=== PATIENT | male | born 1970 | race Two or more races ===

== ENCOUNTER 2020-02-21 13:49 | Inpatient (IN) | payer OTHER ==
[2020-02-21 16:35] VITALS: BMI 25.8
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
[2020-02-21] MEDS ORDERED: NICOTINE POLACRILEX 2 MG GUM BUC PRN (17:27)
[2020-02-21] MEDS ORDERED: MAGNESIUM CITRATE 300 ML BOTTLE PO PRN (17:27)
[2020-02-21] MEDS ORDERED: MAGNESIUM HYDROX 2400MG/30ML ORAL SUSPENSION 30 ML CUP PO PRN (17:27)
[2020-02-21] MEDS ORDERED: ONDANSETRON *ODT* 4 MG TABLET SL ONE (17:27)
[2020-02-21] MEDS ORDERED: BISMUTH SUBSALICYLATE 524 MG/30 ML UD PO PRN (17:27)
[2020-02-21] MEDS ORDERED: MENTHOL/PHENOL 1 EACH UD MM PRN (17:27)
[2020-02-21] MEDS ORDERED: ACETAMINOPHEN 325 MG TABLET (FP) PO PRN ×2 (17:27)
[2020-02-21] MEDS ORDERED: IBUPROFEN 400 MG TABLET (FP) PO PRN (17:27)
[2020-02-21] MEDS ORDERED: diazePAM 5 MG TABLET PO ONE (17:27)
[2020-02-21] MEDS ORDERED: MAG HYDROX/AL HYDROX/SIMETH 30 ML UNIT-DOSE CUP PO PRN (17:27)
[2020-02-21] MEDS ORDERED: TUBERCULIN PPD 5 TU/0.1ML VIAL ID ONE ×2 (19:48→21:07)
[2020-02-21] MEDS: diazePAM 5 MG TABLET PO SCH (22:14)
[2020-02-21] MEDS: MELATONIN 5 MG TABLETS PO SCH (22:14)
[2020-02-21] MEDS: METHOCARBAMOL 500 MG TABLET PO PRN (22:14)
[2020-02-21] MEDS: THIAMINE HCL 100 MG TABLET (FP) PO SCH (22:14)
[2020-02-22] MEDS ORDERED: METHADONE HCL 10 MG TABLET ONE (04:11)
[2020-02-22] MEDS ORDERED: METHADONE HCL 40 MG DISPERSABLE TABLET ONE (04:11)
[2020-02-22] MEDS ORDERED: METHADONE HCL 10 MG TABLET PO ONE (06:00)
[2020-02-22] MEDS ORDERED: METHADONE 80 MG, METHADONE 30 MG PO ONE (06:00)
[2020-02-22] MEDS: diazePAM 5 MG TABLET PO SCH ×3 (07:21→22:33)
[2020-02-22] MEDS: PRENATAL VITAMINS W/ FOLIC ACID TABLET (FP) PO SCH (10:35)
[2020-02-22] MEDS: NICOTINE 7 MG/24 HOURS TOPICAL PATCH TD SCH (10:36)
[2020-02-22] MEDS: diazePAM 5 MG TABLET PO PRN (10:37)
[2020-02-22 11:42] LABS: HEMATOCRIT 39.4 % (35.4-49); MCH 28.3 pg (25.7-33.7); MCHC 32.9 g/dl (32.0-35.9); MEAN CELL VOLUME 85.9 fl (80-96); MEAN PLT VOLUME 8.9 fl (7.5-11.1); PLATELET COUNT 162 K/MM3 (134-434); RBC 4.59 M/mm3 (4.00-5.60); WHITE BLOOD COUNT 5.3 K/mm3 (4.0-10.0)
[2020-02-22 11:55] LABS: ALBUMIN 3.1 g/dl (3.4-5.0); BILIRUBIN,TOTAL 0.2 mg/dL (0.2-1); BLOOD UREA NITROGEN 13.7 mg/dL (7-18); CALCIUM 8.9 mg/dL (8.5-10.1); CREATININE 0.8 mg/dL (0.55-1.3); POTASSIUM 4.2 mmol/L (3.5-5.1); TOT PROT 6.3 g/dl (6.4-8.2)
--- NOTE | 2020-02-22 13:50 | PN ---
S CIWA - CIWA Score Nausea/Vomitin-Mild Nausea/No Vomiting Muscle Tremors: 3 Anxiety: 2 Agitation: 1-Slight > Activity Paroxysmal Sweats: 1-Minimal Palms Moist Orientation: 0-Oriented Tacttile Disturbances: 1-Very Mild Itch/Numbness Auditory Disturbances: 0-None Visual Disturbances: 2-Mild Sensitivity Headache: 1-Very Mild CIWA-Ar Total Score: 12 [facility] Progress Note (SOAP) Subjective: 49 years old male admitted on 02/21/20 for benzo withdrawal sx management treating with valium detox regiment received methadone 110 mg po today feeling ok resting in bed comfortably Objective: 02/22/20 13:49 Vital Signs - 24 hr 02/21/20 02/21/20 02/21/20 16:27 18:15 19:50 Temperature 97.4 F L 97.4 F L 97.8 F Pulse Rate 79 79 67 Respiratory 16 16 18 Rate Blood Pressure 111/74 111/74 114/73 O2 Sat by Pulse 98 Oximetry (%) 02/22/20 02/22/20 02/22/20 07:14 09:05 11:15 Temperature 97.8 F 98.2 F Pulse Rate 61 87 Respiratory 16 18 Rate Blood Pressure 108/64 117/73 O2 Sat by Pulse 96 96 Oximetry (%) Laboratory Tests 02/22/20 02/22/20 02/22/20 07:30 07:30 07:30 WBC 5.3 RBC 4.59 Hgb 13.0 Hct 39.4 MCV 85.9 MCH 28.3 MCHC 32.9 RDW 14.0 Plt Count 162 D MPV 8.9 Sodium 142 Potassium 4.2 Chloride 106 Carbon Dioxide 29 Anion Gap 6 L BUN 13.7 Creatinine 0.8 Est GFR (CKD-EPI)AfAm 123.29 Est GFR (CKD-EPI)NonAf 106.38 Random Glucose 107 H Calcium 8.9 Total Bilirubin 0.2 AST 12 L ALT 18 Alkaline Phosphatase 75 Total Protein 6.3 L Albumin 3.1 L Syphilis Serology Non-reactive Assessment: 02/22/20 13:49 benzo withdrawal Plan: valium regiment
[2020-02-22] MEDS: MELATONIN 5 MG TABLETS PO SCH (22:32)
[2020-02-22] MEDS: METHOCARBAMOL 500 MG TABLET PO PRN (22:33)
[2020-02-22] MEDS: THIAMINE HCL 100 MG TABLET (FP) PO SCH (22:33)
[2020-02-23] MEDS: diazePAM 5 MG TABLET PO SCH ×2 (06:13→17:29)
[2020-02-23] MEDS ORDERED: METHADONE HCL 10 MG TABLET PO ONE (09:43)
[2020-02-23] MEDS ORDERED: METHADONE 80 MG, METHADONE 20 MG, METHADONE 5 MG PO ONE (10:30)
[2020-02-23] MEDS: PRENATAL VITAMINS W/ FOLIC ACID TABLET (FP) PO SCH (10:32)
[2020-02-23] MEDS: NICOTINE 7 MG/24 HOURS TOPICAL PATCH TD SCH (10:32)
[2020-02-23] MEDS ORDERED: METHADONE HCL 10 MG TABLET ONE (11:00)
[2020-02-23] MEDS ORDERED: METHADONE HCL 5 MG TABLET ONE (11:00)
[2020-02-23] MEDS ORDERED: METHADONE HCL 40 MG DISPERSABLE TABLET ONE (11:01)
--- NOTE | 2020-02-23 12:49 | PN ---
S CIWA - CIWA Score Nausea/Vomitin-No Nausea/No Vomiting Muscle Tremors: 4-Moderate,w/Arms Extend Anxiety: 4-Mod. Anxious/Guarded Agitation: 4-Moderately Restless Paroxysmal Sweats: 1-Minimal Palms Moist Orientation: 0-Oriented Tacttile Disturbances: 0-None Auditory Disturbances: 0-None Visual Disturbances: 0-None Headache: 0-None Present CIWA-Ar Total Score: 13 [facility] Progress Note (SOAP) Subjective: Anxiety sweats irritability sl tremors On methadone 105 mg po daily at [facility]. Objective: 02/23/20 12:27 Vital Signs 02/23/20 02/23/20 05:51 09:36 Temperature 98.2 F 98.0 F Pulse Rate 87 87 Respiratory 16 18 Rate Blood Pressure 117/73 120/66 O2 Sat by Pulse 98 98 Oximetry (%) Laboratory Tests 02/22/20 02/22/20 02/22/20 07:30 07:30 07:30 WBC 5.3 RBC 4.59 Hgb 13.0 Hct 39.4 MCV 85.9 MCH 28.3 MCHC 32.9 RDW 14.0 Plt Count 162 D MPV 8.9 Sodium 142 Potassium 4.2 Chloride 106 Carbon Dioxide 29 Anion Gap 6 L BUN 13.7 Creatinine 0.8 Est GFR (CKD-EPI)AfAm 123.29 Est GFR (CKD-EPI)NonAf 106.38 Random Glucose 107 H Calcium 8.9 Total Bilirubin 0.2 AST 12 L ALT 18 Alkaline Phosphatase 75 Total Protein 6.3 L Albumin 3.1 L Syphilis Serology Non-reactive labs noted covid-19 pending Alert o x 3 nad oob ambulating with steady gait 02/23/20 14:12 Assessment: 02/23/20 14:11 withdrawal sx Plan: cont detox
[2020-02-23 17:27] LABS: PH,URINE 7.5 (5.0-8.0); URINE APPEARANCE CLEAR; URINE BILIRUBIN NEGATIVE (NEGATIVE); URINE COLOR YELLOW; URINE GLUCOSE (UA) NEGATIVE (NEGATIVE); URINE KETONE NEGATIVE (NEGATIVE); URINE LEUK ESTERASE NEGATIVE (NEGATIVE); URINE NITRITE NEGATIVE (NEGATIVE); URINE PROTEIN NEGATIVE (NEGATIVE); URINE UROBILINOGEN 0.2 mg/dL (0.2-1.0)
[2020-02-23] MEDS: THIAMINE HCL 100 MG TABLET (FP) PO SCH (21:06)
[2020-02-23] MEDS: MELATONIN 5 MG TABLETS PO SCH (21:06)
[2020-02-23] MEDS: diazePAM 5 MG TABLET PO PRN (21:07)
[2020-02-24] MEDS ORDERED: METHADONE 80 MG, METHADONE 20 MG, METHADONE 5 MG PO SCH (06:00)
[2020-02-24] MEDS ORDERED: METHADONE HCL 10 MG TABLET PO SCH (06:00)
[2020-02-24] MEDS ORDERED: diazePAM 5 MG TABLET PO ONE (06:00)
[2020-02-24] MEDS ORDERED: METHADONE HCL 10 MG TABLET ONE (06:29)
[2020-02-24] MEDS ORDERED: METHADONE HCL 5 MG TABLET ONE (06:29)
[2020-02-24] MEDS ORDERED: METHADONE HCL 40 MG DISPERSABLE TABLET ONE (06:30)
[2020-02-24 06:45] VITALS: BP 148/83; PULSE 71; TEMP 97.8
[2020-02-24] MEDS: PRENATAL VITAMINS W/ FOLIC ACID TABLET (FP) PO SCH (09:06)
[2020-02-24] MEDS: NICOTINE 7 MG/24 HOURS TOPICAL PATCH TD SCH (09:06)
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
== END 2020-02-24 10:33 | disposition home or self-care (01) | DRG 773 ==
LOC: YASAS 13:49 → Y5N DETOX 19:14
PROVIDERS: ADMIT Allergy & Immunology; ATTEND Allergy & Immunology
PROC: HZ2ZZZZ Detoxification Services for Substance Abuse Treatment (ICD-10-PCS; principal; 2020-02-21)
DX: F10.230 Alcohol dependence with withdrawal, uncomplicated (principal); F11.20 Opioid dependence, uncomplicated; F13.20 Sedative, hypnotic or anxiolytic dependence, uncomplicated; F17.210 Nicotine dependence, cigarettes, uncomplicated; Z91.013 Allergy to seafood
CPT/HCPCS: 36415; 80053; 81003; 85027; 86780; U0003

== ENCOUNTER 2021-10-05 12:39 | Inpatient (IN) | payer OTHER ==
[2021-10-05] MEDS ORDERED: MAG HYDROX/AL HYDROX/SIMETH 30 ML UNIT-DOSE CUP PO PRN (12:59)
[2021-10-05] MEDS ORDERED: BISMUTH SUBSALICYLATE 524 MG/30 ML PO PRN (12:59)
[2021-10-05] MEDS ORDERED: IBUPROFEN 400 MG TABLET (FP) PO PRN (12:59)
[2021-10-05] MEDS ORDERED: ONDANSETRON *ODT* 4 MG TABLET SL PRN (12:59)
[2021-10-05] MEDS ORDERED: MAGNESIUM CITRATE 300 ML BOTTLE PO PRN (12:59)
[2021-10-05] MEDS ORDERED: MAGNESIUM HYDROX 2400MG/30ML ORAL SUSPENSION 30 ML CUP PO PRN (12:59)
[2021-10-05] MEDS ORDERED: MENTHOL/PHENOL 1 EACH UD MM PRN (12:59)
[2021-10-05] MEDS ORDERED: chlordiazePOXIDE HCL 25 MG CAPSULE PO PRN (12:59)
[2021-10-05] MEDS ORDERED: NICOTINE 10 MG CARTRIDGE (INHALER) IH PRN (12:59)
[2021-10-05] MEDS ORDERED: ACETAMINOPHEN 325 MG TABLET (FP) PO PRN ×2 (12:59)
[2021-10-05 13:18] VITALS: BMI 23.1
[2021-10-05] MEDS: hydrOXYzine PAMOATE 25 MG CAPSULE (FP) PO SCH ×3 (15:39→22:21)
[2021-10-05] MEDS: NICOTINE 7 MG/24 HOURS TOPICAL PATCH TD SCH (15:40)
[2021-10-05] MEDS: PRENATAL VITAMINS W/ FOLIC ACID TABLET (FP) PO SCH (15:40)
[2021-10-05 17:03] LABS: HEMATOCRIT 40.8 % (35.4-49); HEMOGLOBIN 13.2 GM/dL (11.7-16.9); MCH 26.6 pg (25.7-33.7); MCHC 32.4 g/dl (32.0-35.9); MEAN PLT VOLUME 8.8 fl (7.5-11.1); PLATELET COUNT 205 10^3/uL (134-434); RBC 4.97 M/mm3 (4.00-5.60); RDW 14.7 % (11.9-15.9); WHITE BLOOD COUNT 6.6 K/mm3 (4.0-10.0)
[2021-10-05 17:15] LABS: ALBUMIN 3.4 g/dl (3.4-5.0); CALCIUM 8.8 mg/dL (8.5-10.1)
[2021-10-05 17:18] LABS: CREATININE 0.9 mg/dL (0.55-1.3)
[2021-10-05 17:20] LABS: TOT PROT 7.4 g/dl (6.4-8.2)
[2021-10-05 17:21] LABS: BILIRUBIN,TOTAL 0.1 mg/dL (0.2-1)
[2021-10-05] MEDS: chlordiazePOXIDE HCL 25 MG CAPSULE PO SCH ×2 (18:20→22:21)
[2021-10-05] MEDS: THIAMINE HCL 100 MG TABLET (FP) PO SCH (22:21)
[2021-10-05] MEDS: MELATONIN 5 MG TABLETS PO SCH (22:21)
[2021-10-06] MEDS: chlordiazePOXIDE HCL 25 MG CAPSULE PO SCH ×4 (05:17→22:12)
[2021-10-06] MEDS: hydrOXYzine PAMOATE 25 MG CAPSULE (FP) PO SCH ×5 (05:17→22:12)
[2021-10-06] MEDS ORDERED: methaDONE HCL 40 MG DISPERSABLE TABLET PO SCH (10:00)
[2021-10-06] MEDS: PRENATAL VITAMINS W/ FOLIC ACID TABLET (FP) PO SCH (10:16)
[2021-10-06] MEDS ORDERED: methaDONE HCL 10 MG TABLET ONE (10:36)
[2021-10-06] MEDS ORDERED: methaDONE HCL 40 MG DISPERSABLE TABLET ONE (10:37)
[2021-10-06] MEDS: NICOTINE 7 MG/24 HOURS TOPICAL PATCH TD SCH (10:51)
[2021-10-06] MEDS: MELATONIN 5 MG TABLETS PO SCH (22:11)
[2021-10-06] MEDS: THIAMINE HCL 100 MG TABLET (FP) PO SCH (22:12)
[2021-10-07] MEDS ORDERED: methaDONE HCL 40 MG DISPERSABLE TABLET ONE (04:36)
[2021-10-07] MEDS ORDERED: methaDONE HCL 10 MG TABLET ONE (04:36)
[2021-10-07] MEDS: hydrOXYzine PAMOATE 25 MG CAPSULE (FP) PO SCH ×5 (05:12→22:16)
[2021-10-07] MEDS: chlordiazePOXIDE HCL 25 MG CAPSULE PO SCH ×4 (05:12→22:15)
[2021-10-07] MEDS: PRENATAL VITAMINS W/ FOLIC ACID TABLET (FP) PO SCH (10:11)
[2021-10-07] MEDS: NICOTINE 7 MG/24 HOURS TOPICAL PATCH TD SCH (10:29)
[2021-10-07] MEDS: MELATONIN 5 MG TABLETS PO SCH (22:16)
[2021-10-07] MEDS: THIAMINE HCL 100 MG TABLET (FP) PO SCH (22:16)
[2021-10-08] MEDS ORDERED: chlordiazePOXIDE HCL 10 MG CAPSULE PO PRN
[2021-10-08] MEDS ORDERED: methaDONE HCL 10 MG TABLET ONE (04:26)
[2021-10-08] MEDS ORDERED: methaDONE HCL 40 MG DISPERSABLE TABLET ONE (04:26)
[2021-10-08] MEDS: chlordiazePOXIDE HCL 10 MG CAPSULE PO SCH ×4 (05:22→22:13)
[2021-10-08] MEDS: hydrOXYzine PAMOATE 25 MG CAPSULE (FP) PO SCH ×5 (05:23→22:13)
[2021-10-08] MEDS: NICOTINE 7 MG/24 HOURS TOPICAL PATCH TD SCH (10:19)
[2021-10-08] MEDS: PRENATAL VITAMINS W/ FOLIC ACID TABLET (FP) PO SCH (10:20)
[2021-10-08] MEDS: MELATONIN 5 MG TABLETS PO SCH (22:13)
[2021-10-08] MEDS: METHOCARBAMOL 500 MG TABLET PO PRN (22:13)
[2021-10-08] MEDS: THIAMINE HCL 100 MG TABLET (FP) PO SCH (22:13)
[2021-10-09] MEDS ORDERED: methaDONE HCL 40 MG DISPERSABLE TABLET ONE (04:17)
[2021-10-09] MEDS ORDERED: methaDONE HCL 10 MG TABLET ONE (04:17)
[2021-10-09] MEDS: chlordiazePOXIDE HCL 10 MG CAPSULE PO SCH ×2 (05:24→17:46)
[2021-10-09] MEDS: hydrOXYzine PAMOATE 25 MG CAPSULE (FP) PO SCH ×5 (05:24→22:33)
[2021-10-09] MEDS: NICOTINE 7 MG/24 HOURS TOPICAL PATCH TD SCH (10:17)
[2021-10-09] MEDS: PRENATAL VITAMINS W/ FOLIC ACID TABLET (FP) PO SCH (10:17)
[2021-10-09] MEDS: MELATONIN 5 MG TABLETS PO SCH (22:31)
[2021-10-09] MEDS: THIAMINE HCL 100 MG TABLET (FP) PO SCH (22:33)
[2021-10-09] MEDS: METHOCARBAMOL 500 MG TABLET PO PRN (22:33)
[2021-10-10] MEDS ORDERED: methaDONE HCL 10 MG TABLET ONE (04:14)
[2021-10-10] MEDS ORDERED: methaDONE HCL 40 MG DISPERSABLE TABLET ONE (04:15)
[2021-10-10] MEDS ORDERED: chlordiazePOXIDE HCL 10 MG CAPSULE PO ONE (05:00)
[2021-10-10] MEDS: hydrOXYzine PAMOATE 25 MG CAPSULE (FP) PO SCH (05:14)
[2021-10-10 09:03] VITALS: BP 113/71; PULSE 72; TEMP 97.3
== END 2021-10-10 09:53 | disposition other institution (70) | DRG 773 ==
LOC: YASAS 12:39 → Y3N 14:00
PROVIDERS: ADMIT Allergy & Immunology; ATTEND Allergy & Immunology
PROC: HZ2ZZZZ Detoxification Services for Substance Abuse Treatment (ICD-10-PCS; principal; 2021-10-05)
DX: F11.23 Opioid dependence with withdrawal (principal); F10.230 Alcohol dependence with withdrawal, uncomplicated; F13.20 Sedative, hypnotic or anxiolytic dependence, uncomplicated; F17.210 Nicotine dependence, cigarettes, uncomplicated; B18.2 Chronic viral hepatitis C; R63.4 Abnormal weight loss; Z68.23 Body mass index [BMI] 23.0-23.9, adult; Z98.890 Other specified postprocedural states; Z91.013 Allergy to seafood; Z56.0 Unemployment, unspecified; Z59.00 Homelessness unspecified
CPT/HCPCS: 36415; 80053; 85027; 86780; 93005; 93010; C9803; U0003; U0005

== ENCOUNTER 2022-03-18 12:12 | Inpatient (IN) | payer OTHER ==
[2022-03-18 14:47] VITALS: BMI 23.8
[2022-03-18] MEDS ORDERED: MAG HYDROX/AL HYDROX/SIMETH 30 ML UNIT-DOSE CUP PO PRN (16:13)
[2022-03-18] MEDS ORDERED: DICYCLOMINE HCL 10 MG CAPSULE PO PRN (16:13)
[2022-03-18] MEDS ORDERED: MAGNESIUM CITRATE 300 ML BOTTLE PO PRN (16:13)
[2022-03-18] MEDS ORDERED: ACETAMINOPHEN 325 MG TABLET (FP) PO PRN ×2 (16:13)
[2022-03-18] MEDS ORDERED: MAGNESIUM HYDROX 2400MG/30ML ORAL SUSPENSION 30 ML CUP PO PRN (16:13)
[2022-03-18] MEDS ORDERED: IBUPROFEN 600 MG TABLET (FP) PO PRN (16:13)
[2022-03-18] MEDS ORDERED: BISMUTH SUBSALICYLATE 524 MG/30 ML PO PRN (16:13)
[2022-03-18] MEDS ORDERED: IBUPROFEN 400 MG TABLET (FP) PO PRN (16:13)
[2022-03-18] MEDS ORDERED: NICOTINE POLACRILEX 2 MG GUM BUC PRN (16:13)
[2022-03-18] MEDS ORDERED: NALOXONE HCL 0.4 MG/ML VIAL IM PRN (16:13)
[2022-03-18] MEDS ORDERED: LOPERAMIDE HCL 2 MG CAPSULE PO PRN (16:13)
[2022-03-18] MEDS ORDERED: BENZOCAINE/MENTHOL (CHLORASEPTIC ) LOZENGE MM PRN (16:13)
[2022-03-18] MEDS: LORazepam 2 MG TABLET PO SCH ×2 (18:37→22:05)
[2022-03-18] MEDS: LORazepam 1 MG TABLET PO PRN (20:45)
[2022-03-18] MEDS: THIAMINE HCL 100 MG TABLET (FP) PO SCH (22:05)
[2022-03-18] MEDS: MELATONIN 5 MG TABLETS PO SCH (22:05)
[2022-03-19] MEDS: LORazepam 2 MG TABLET PO SCH ×4 (05:50→22:06)
[2022-03-19 09:07] LABS: HEMATOCRIT 40.8 % (35.4-49); HEMOGLOBIN 13.5 GM/dL (11.7-16.9); MCH 27.2 pg (25.7-33.7); MCHC 33.1 g/dl (32.0-35.9); MEAN CELL VOLUME 82.3 fl (80-96); MEAN PLT VOLUME 8.2 fl (7.5-11.1); PLATELET COUNT 228 10^3/uL (134-434); RBC 4.95 M/mm3 (4.00-5.60); RDW 14.3 % (11.9-15.9); WHITE BLOOD COUNT 5.5 K/mm3 (4.0-10.0)
[2022-03-19 09:11] LABS: ALBUMIN 3.2 g/dl (3.4-5.0); BLOOD UREA NITROGEN 10.5 mg/dL (7-18); CREATININE 0.9 mg/dL (0.55-1.3)
[2022-03-19 09:12] LABS: CALCIUM 8.9 mg/dL (8.5-10.1)
[2022-03-19 09:13] LABS: BILIRUBIN,TOTAL 0.2 mg/dL (0.2-1); TOT PROT 7.6 g/dl (6.4-8.2)
[2022-03-19] MEDS: NICOTINE 7 MG/24 HOURS TOPICAL PATCH TD SCH (10:16)
[2022-03-19] MEDS: METHOCARBAMOL 500 MG TABLET PO PRN (10:16)
[2022-03-19] MEDS: PRENATAL VITAMINS W/ FOLIC ACID TABLET (FP) PO SCH (10:16)
[2022-03-19] MEDS: hydrOXYzine PAMOATE 25 MG CAPSULE (FP) PO PRN ×2 (10:16→13:58)
[2022-03-19] MEDS ORDERED: methaDONE HCL 10 MG TABLET PO ONE (10:42)
[2022-03-19] MEDS: LORazepam 1 MG TABLET PO PRN (13:56)
[2022-03-19] MEDS: MELATONIN 5 MG TABLETS PO SCH (22:06)
[2022-03-19] MEDS: THIAMINE HCL 100 MG TABLET (FP) PO SCH (22:06)
[2022-03-20] MEDS: LORazepam 1 MG TABLET PO SCH ×4 (06:02→22:39)
[2022-03-20] MEDS: METHOCARBAMOL 500 MG TABLET PO PRN (06:03)
[2022-03-20] MEDS ORDERED: methaDONE HCL 10 MG TABLET PO SCH (08:45)
[2022-03-20] MEDS ORDERED: methaDONE HCL 10 MG TABLET ONE (09:25)
[2022-03-20] MEDS ORDERED: methaDONE HCL 40 MG DISPERSABLE TABLET ONE (09:26)
[2022-03-20] MEDS: PRENATAL VITAMINS W/ FOLIC ACID TABLET (FP) PO SCH (09:35)
[2022-03-20] MEDS: hydrOXYzine PAMOATE 25 MG CAPSULE (FP) PO PRN ×2 (09:35→19:09)
[2022-03-20] MEDS: NICOTINE 7 MG/24 HOURS TOPICAL PATCH TD SCH (09:36)
[2022-03-20] MEDS: LORazepam 1 MG TABLET PO PRN (19:09)
[2022-03-20] MEDS: MELATONIN 5 MG TABLETS PO SCH (22:39)
[2022-03-20] MEDS: THIAMINE HCL 100 MG TABLET (FP) PO SCH (22:39)
[2022-03-21] MEDS ORDERED: LORazepam 0.5 MG TABLET PO PRN
[2022-03-21] MEDS ORDERED: methaDONE HCL 10 MG TABLET ONE (04:26)
[2022-03-21] MEDS ORDERED: methaDONE HCL 40 MG DISPERSABLE TABLET ONE (04:27)
[2022-03-21] MEDS: METHOCARBAMOL 500 MG TABLET PO PRN ×3 (05:24→22:25)
[2022-03-21] MEDS: LORazepam 0.5 MG TABLET PO SCH ×4 (05:25→22:24)
[2022-03-21] MEDS: NICOTINE 7 MG/24 HOURS TOPICAL PATCH TD SCH (10:18)
[2022-03-21] MEDS: PRENATAL VITAMINS W/ FOLIC ACID TABLET (FP) PO SCH (10:18)
[2022-03-21] MEDS: hydrOXYzine PAMOATE 25 MG CAPSULE (FP) PO PRN ×2 (10:20→17:39)
[2022-03-21] MEDS: THIAMINE HCL 100 MG TABLET (FP) PO SCH (22:23)
[2022-03-21] MEDS: MELATONIN 5 MG TABLETS PO SCH (22:24)
[2022-03-22] MEDS ORDERED: methaDONE HCL 40 MG DISPERSABLE TABLET ONE (05:00)
[2022-03-22] MEDS ORDERED: LORazepam 0.5 MG TABLET PO ONE (05:00)
[2022-03-22] MEDS ORDERED: methaDONE HCL 10 MG TABLET ONE (05:00)
[2022-03-22 08:41] VITALS: RESP 18
[2022-03-22] MEDS: METHOCARBAMOL 500 MG TABLET PO PRN (10:09)
[2022-03-22] MEDS: PRENATAL VITAMINS W/ FOLIC ACID TABLET (FP) PO SCH (10:09)
[2022-03-22] MEDS: NICOTINE 7 MG/24 HOURS TOPICAL PATCH TD SCH (10:10)
[2022-03-22 13:10] VITALS: BP 108/65; PULSE 74; TEMP 97.3
== END 2022-03-22 13:10 | disposition other institution (70) | DRG 773 ==
LOC: YASAS 12:12 → Y3N 16:31
PROVIDERS: ADMIT Allergy & Immunology; ATTEND Surgery
PROC: HZ2ZZZZ Detoxification Services for Substance Abuse Treatment (ICD-10-PCS; principal; 2022-03-18)
DX: F10.230 Alcohol dependence with withdrawal, uncomplicated (principal); F11.20 Opioid dependence, uncomplicated; F13.20 Sedative, hypnotic or anxiolytic dependence, uncomplicated; F17.210 Nicotine dependence, cigarettes, uncomplicated; F31.9 Bipolar disorder, unspecified; F20.9 Schizophrenia, unspecified; E78.5 Hyperlipidemia, unspecified; I10 Essential (primary) hypertension; K21.9 Gastro-esophageal reflux disease without esophagitis; B18.2 Chronic viral hepatitis C; Z86.73 Personal history of transient ischemic attack (TIA), and cerebral infarction without residual deficits
CPT/HCPCS: 36415; 80053; 85027; 86780; 87811; C9803-CS; U0003; U0005

== ENCOUNTER 2022-03-22 13:23 | Inpatient (IN) | payer OTHER ==
[2022-03-22] MEDS ORDERED: IBUPROFEN 400 MG TABLET (FP) PO PRN (14:54)
[2022-03-22] MEDS ORDERED: LOPERAMIDE HCL 2 MG CAPSULE PO PRN (14:54)
[2022-03-22] MEDS ORDERED: guaiFENesin 200 MG/10 ML 10 ML UNIT-DOSE CUPS PO PRN (14:54)
[2022-03-22] MEDS ORDERED: MAGNESIUM HYDROX 2400MG/30ML ORAL SUSPENSION 30 ML CUP PO PRN (14:54)
[2022-03-22] MEDS ORDERED: MAGNESIUM CITRATE 300 ML BOTTLE PO PRN (14:54)
[2022-03-22] MEDS ORDERED: BENZOCAINE/MENTHOL (CHLORASEPTIC ) LOZENGE MM PRN (14:54)
[2022-03-22] MEDS ORDERED: NICOTINE POLACRILEX 2 MG GUM BUC PRN (14:54)
[2022-03-22] MEDS ORDERED: NICOTINE 10 MG CARTRIDGE (INHALER) IH PRN (14:54)
[2022-03-22] MEDS ORDERED: P-EPHED 60MG/TRIPROLIDI 2.5MG TABLET PO PRN (14:54)
[2022-03-22] MEDS ORDERED: MAG HYDROX/AL HYDROX/SIMETH 30 ML UNIT-DOSE CUP PO PRN (14:54)
[2022-03-22] MEDS: THIAMINE HCL 100 MG TABLET (FP) PO SCH (21:24)
[2022-03-22] MEDS: hydrOXYzine PAMOATE 25 MG CAPSULE (FP) PO PRN (21:24)
[2022-03-22] MEDS: MELATONIN 5 MG TABLETS PO SCH (21:24)
[2022-03-23] MEDS ORDERED: methaDONE HCL 40 MG DISPERSABLE TABLET ONE (05:41)
[2022-03-23] MEDS ORDERED: methaDONE HCL 10 MG TABLET ONE (05:41)
[2022-03-23] MEDS: hydrOXYzine PAMOATE 25 MG CAPSULE (FP) PO PRN (06:18)
[2022-03-23] MEDS: PRENATAL VITAMINS W/ FOLIC ACID TABLET (FP) PO SCH (09:37)
[2022-03-23] MEDS ORDERED: risperiDONE 2 MG TABLET PO SCH (11:45)
[2022-03-23] MEDS: hydrOXYzine PAMOATE 50 MG CAPSULE (FP) PO PRN ×2 (13:49→21:08)
[2022-03-23] MEDS: ACETAMINOPHEN 325 MG TABLET (FP) PO PRN (19:48)
[2022-03-23] MEDS: THIAMINE HCL 100 MG TABLET (FP) PO SCH (21:03)
[2022-03-23] MEDS: MELATONIN 5 MG TABLETS PO SCH (21:03)
[2022-03-23] MEDS: AMITRIPTYLINE HCL PO SCH (21:05)
[2022-03-23] MEDS: risperiDONE 2 MG TABLET PO SCH (21:07)
[2022-03-23] MEDS ORDERED: AMITRIPTYLINE HCL 100 MG TABLET PO SCH (22:00)
[2022-03-24] MEDS ORDERED: methaDONE HCL 10 MG TABLET ONE (06:56)
[2022-03-24] MEDS ORDERED: methaDONE HCL 40 MG DISPERSABLE TABLET ONE (06:56)
[2022-03-24] MEDS: hydrOXYzine PAMOATE 50 MG CAPSULE (FP) PO PRN (07:01)
[2022-03-24] MEDS: PRENATAL VITAMINS W/ FOLIC ACID TABLET (FP) PO SCH (09:46)
[2022-03-24] MEDS: AMITRIPTYLINE HCL PO SCH (22:33)
[2022-03-24] MEDS: MELATONIN 5 MG TABLETS PO SCH (22:33)
[2022-03-24] MEDS: THIAMINE HCL 100 MG TABLET (FP) PO SCH (22:34)
[2022-03-24] MEDS: risperiDONE 2 MG TABLET PO SCH (22:34)
[2022-03-25] MEDS ORDERED: methaDONE HCL 10 MG TABLET ONE (05:27)
[2022-03-25] MEDS ORDERED: methaDONE HCL 40 MG DISPERSABLE TABLET ONE (05:27)
[2022-03-25] MEDS: ACETAMINOPHEN 325 MG TABLET (FP) PO PRN ×2 (06:12→19:53)
[2022-03-25 06:50] VITALS: RESP 18
[2022-03-25] MEDS: PRENATAL VITAMINS W/ FOLIC ACID TABLET (FP) PO SCH (10:39)
[2022-03-25] MEDS: AMITRIPTYLINE HCL PO SCH (22:04)
[2022-03-25] MEDS: risperiDONE 2 MG TABLET PO SCH (22:04)
[2022-03-25] MEDS: MELATONIN 5 MG TABLETS PO SCH (22:04)
[2022-03-25] MEDS: THIAMINE HCL 100 MG TABLET (FP) PO SCH (22:26)
[2022-03-26] MEDS: hydrOXYzine PAMOATE 50 MG CAPSULE (FP) PO PRN (02:35)
[2022-03-26] MEDS ORDERED: methaDONE HCL 40 MG DISPERSABLE TABLET ONE (02:49)
[2022-03-26] MEDS ORDERED: methaDONE HCL 10 MG TABLET ONE (02:49)
[2022-03-26 06:52] VITALS: BP 104/77; PULSE 96; TEMP 97.5
[2022-03-26] MEDS ORDERED: ALBUTEROL SO4 HFA INHALER IH PRN (10:13)
[2022-03-26] MEDS: PRENATAL VITAMINS W/ FOLIC ACID TABLET (FP) PO SCH (11:28)
== END 2022-03-26 10:00 | disposition home or self-care (01) | DRG 772 ==
LOC: YASAS 13:23 → Y5N 13:25
PROVIDERS: ADMIT Allergy & Immunology; ATTEND Psychiatry & Neurology Pain Medicine
PROC: HZ42ZZZ Group Counseling for Substance Abuse Treatment, Cognitive-Behavioral (ICD-10-PCS; principal; 2022-03-22)
DX: F10.20 Alcohol dependence, uncomplicated (principal); F11.20 Opioid dependence, uncomplicated; F17.210 Nicotine dependence, cigarettes, uncomplicated; F43.10 Post-traumatic stress disorder, unspecified; F25.9 Schizoaffective disorder, unspecified; F19.282 Other psychoactive substance dependence with psychoactive substance-induced sleep disorder; F19.280 Other psychoactive substance dependence with psychoactive substance-induced anxiety disorder; I10 Essential (primary) hypertension; J45.909 Unspecified asthma, uncomplicated; G89.29 Other chronic pain; K21.9 Gastro-esophageal reflux disease without esophagitis; B18.2 Chronic viral hepatitis C; E78.5 Hyperlipidemia, unspecified; D64.9 Anemia, unspecified; Z56.0 Unemployment, unspecified; Z59.00 Homelessness unspecified

== ENCOUNTER 2022-09-19 11:00 | Inpatient (IN) | payer OTHER ==
[2022-09-19 11:40] VITALS: BMI 25.4
[2022-09-19] MEDS ORDERED: IBUPROFEN 600 MG TABLET (FP) PO PRN (11:58)
[2022-09-19] MEDS ORDERED: DICYCLOMINE HCL 10 MG CAPSULE PO PRN (11:58)
[2022-09-19] MEDS ORDERED: NALOXONE HCL (KLOXXADO) 8 MG SPRAY NS PRN (11:58)
[2022-09-19] MEDS ORDERED: BISMUTH SUBSALICYLATE 262 MG/15 ML BTL PO PRN (11:58)
[2022-09-19] MEDS ORDERED: MAG HYDROX/AL HYDROX/SIMETH 30 ML UNIT-DOSE CUP PO PRN (11:58)
[2022-09-19] MEDS ORDERED: LOPERAMIDE HCL 2 MG CAPSULE PO PRN (11:58)
[2022-09-19] MEDS ORDERED: hydrOXYzine PAMOATE 25 MG CAPSULE (FP) PO PRN (11:58)
[2022-09-19] MEDS ORDERED: IBUPROFEN 400 MG TABLET (FP) PO PRN (11:58)
[2022-09-19] MEDS ORDERED: ONDANSETRON *ODT* 4 MG TABLET SL PRN (11:58)
[2022-09-19] MEDS ORDERED: METHOCARBAMOL 500 MG TABLET PO PRN (11:58)
[2022-09-19] MEDS ORDERED: ACETAMINOPHEN 325 MG TABLET (FP) PO PRN ×2 (11:58)
[2022-09-19] MEDS ORDERED: BENZOCAINE/MENTHOL (CHLORASEPTIC ) LOZENGE MM PRN (11:58)
[2022-09-19] MEDS ORDERED: POLYETHYLENE GLYCOL (HEALTHYLAX) 3350 17 GM PACKET PO PRN (11:58)
[2022-09-19] MEDS ORDERED: MAGNESIUM HYDROX 2400MG/30ML ORAL SUSPENSION 30 ML CUP PO PRN (11:58)
[2022-09-19] MEDS ORDERED: chlordiazePOXIDE HCL 25 MG CAPSULE PO PRN (11:58)
[2022-09-19] MEDS ORDERED: ALBUTEROL SO4 HFA INHALER IH PRN (12:14)
[2022-09-19] MEDS: PRENATAL VITAMINS W/ FOLIC ACID TABLET (FP) PO SCH (12:52)
[2022-09-19 16:36] LABS: HEMATOCRIT 42.6 % (35.4-49); HEMOGLOBIN 14.1 GM/dL (11.7-16.9); MCHC 33.1 g/dl (32.0-35.9); MEAN CELL VOLUME 81.5 fl (80-96); MEAN PLT VOLUME 8.3 fl (7.5-11.1); PLATELET COUNT 208 10^3/uL (134-434); RBC 5.22 M/mm3 (4.00-5.60); RDW 15.5 % (11.9-15.9); WHITE BLOOD COUNT 7.1 K/mm3 (4.0-10.0)
[2022-09-19 16:42] LABS: ALBUMIN 3.5 g/dl (3.4-5.0); BLOOD UREA NITROGEN 15.5 mg/dL (7-18)
[2022-09-19 16:47] LABS: TOT PROT 7.7 g/dl (6.4-8.2)
[2022-09-19 16:48] LABS: BILIRUBIN,TOTAL 0.2 mg/dL (0.2-1)
[2022-09-19] MEDS: chlordiazePOXIDE HCL 25 MG CAPSULE PO SCH ×2 (17:28→22:14)
[2022-09-19] MEDS: MELATONIN 5 MG TABLETS PO SCH (22:14)
[2022-09-19] MEDS: THIAMINE HCL 100 MG TABLET (FP) PO SCH (22:16)
[2022-09-20] MEDS: chlordiazePOXIDE HCL 25 MG CAPSULE PO SCH ×4 (05:57→22:12)
[2022-09-20] MEDS ORDERED: methaDONE HCL 10 MG TABLET PO ONE (09:20)
[2022-09-20] MEDS: PRENATAL VITAMINS W/ FOLIC ACID TABLET (FP) PO SCH (10:22)
[2022-09-20] MEDS ORDERED: LACTULOSE 20 GM/30 ML UDC (FOR ORAL USE ONLY) PO PRN (14:24)
[2022-09-20] MEDS: LACTULOSE 20 GM/30 ML UDC (FOR ORAL USE ONLY) PO SCH (22:11)
[2022-09-20] MEDS: THIAMINE HCL 100 MG TABLET (FP) PO SCH (22:12)
[2022-09-20] MEDS: MELATONIN 5 MG TABLETS PO SCH (22:12)
[2022-09-21] MEDS: LACTULOSE 20 GM/30 ML UDC (FOR ORAL USE ONLY) PO SCH ×3 (05:36→22:13)
[2022-09-21] MEDS: chlordiazePOXIDE HCL 25 MG CAPSULE PO SCH ×4 (05:36→22:42)
[2022-09-21] MEDS ORDERED: methaDONE HCL 10 MG TABLET PO SCH (06:00)
[2022-09-21] MEDS: PRENATAL VITAMINS W/ FOLIC ACID TABLET (FP) PO SCH (10:14)
[2022-09-21] MEDS: THIAMINE HCL 100 MG TABLET (FP) PO SCH (22:13)
[2022-09-21] MEDS: MELATONIN 5 MG TABLETS PO SCH (22:13)
[2022-09-22] MEDS ORDERED: chlordiazePOXIDE HCL 10 MG CAPSULE PO PRN
[2022-09-22] MEDS: LACTULOSE 20 GM/30 ML UDC (FOR ORAL USE ONLY) PO SCH ×3 (05:31→22:14)
[2022-09-22] MEDS: chlordiazePOXIDE HCL 10 MG CAPSULE PO SCH ×4 (05:31→22:14)
[2022-09-22] MEDS: PRENATAL VITAMINS W/ FOLIC ACID TABLET (FP) PO SCH (10:13)
[2022-09-22] MEDS: MELATONIN 5 MG TABLETS PO SCH (22:12)
[2022-09-22] MEDS: THIAMINE HCL 100 MG TABLET (FP) PO SCH (22:12)
[2022-09-23] MEDS: chlordiazePOXIDE HCL 10 MG CAPSULE PO SCH ×2 (05:24→17:49)
[2022-09-23] MEDS: LACTULOSE 20 GM/30 ML UDC (FOR ORAL USE ONLY) PO SCH ×3 (05:47→21:56)
[2022-09-23] MEDS: PRENATAL VITAMINS W/ FOLIC ACID TABLET (FP) PO SCH (10:35)
[2022-09-23] MEDS ORDERED: LACTULOSE 20 GM/30 ML UDC (FOR ORAL USE ONLY) PO SCH (18:00)
[2022-09-23] MEDS: THIAMINE HCL 100 MG TABLET (FP) PO SCH (21:57)
[2022-09-23] MEDS: MELATONIN 5 MG TABLETS PO SCH (21:57)
[2022-09-24] MEDS ORDERED: chlordiazePOXIDE HCL 10 MG CAPSULE PO ONE (05:00)
[2022-09-24] MEDS: LACTULOSE 20 GM/30 ML UDC (FOR ORAL USE ONLY) PO SCH (05:40)
[2022-09-24 06:29] VITALS: TEMP 97.3
[2022-09-24 09:27] VITALS: BP 132/77; PULSE 79; RESP 17
== END 2022-09-24 09:25 | disposition home or self-care (01) | DRG 773 ==
LOC: YASAS 11:00 → Y3N 12:11
PROVIDERS: ADMIT Allergy & Immunology; ATTEND Family Medicine
PROC: HZ2ZZZZ Detoxification Services for Substance Abuse Treatment (ICD-10-PCS; principal; 2022-09-19)
DX: F10.230 Alcohol dependence with withdrawal, uncomplicated (principal); F11.20 Opioid dependence, uncomplicated; F13.20 Sedative, hypnotic or anxiolytic dependence, uncomplicated; F17.210 Nicotine dependence, cigarettes, uncomplicated; F31.9 Bipolar disorder, unspecified; F41.8 Other specified anxiety disorders; E72.20 Disorder of urea cycle metabolism, unspecified; E78.5 Hyperlipidemia, unspecified; I10 Essential (primary) hypertension; J45.909 Unspecified asthma, uncomplicated; K21.9 Gastro-esophageal reflux disease without esophagitis; M54.50 Low back pain, unspecified; G89.29 Other chronic pain; Z86.19 Personal history of other infectious and parasitic diseases; Z86.73 Personal history of transient ischemic attack (TIA), and cerebral infarction without residual deficits
CPT/HCPCS: 36415; 80053; 82140; 85027; 86780; 87811; C9803-CS; U0003; U0005

== ENCOUNTER 2023-04-18 10:42 | Inpatient (IN) | payer OTHER ==
[2023-04-18 11:19] VITALS: BMI 25.4
[2023-04-18] MEDS ORDERED: IBUPROFEN 600 MG TABLET (FP) PO PRN (12:12)
[2023-04-18] MEDS ORDERED: MAG HYDROX/AL HYDROX/SIMETH 30 ML UNIT-DOSE CUP PO PRN (12:12)
[2023-04-18] MEDS ORDERED: ONDANSETRON *ODT* 4 MG TABLET SL PRN (12:12)
[2023-04-18] MEDS ORDERED: IBUPROFEN 400 MG TABLET (FP) PO PRN (12:12)
[2023-04-18] MEDS ORDERED: chlordiazePOXIDE HCL 25 MG CAPSULE PO PRN (12:12)
[2023-04-18] MEDS ORDERED: MAGNESIUM HYDROX 2400MG/30ML ORAL SUSPENSION 30 ML CUP PO PRN (12:12)
[2023-04-18] MEDS ORDERED: BISMUTH SUBSALICYLATE 524 MG/30 ML PO PRN (12:12)
[2023-04-18] MEDS ORDERED: POLYETHYLENE GLYCOL (HEALTHYLAX) 3350 17 GM PACKET PO PRN (12:12)
[2023-04-18] MEDS ORDERED: BENZOCAINE/MENTHOL (CHLORASEPTIC ) LOZENGE MM PRN (12:12)
[2023-04-18] MEDS ORDERED: LOPERAMIDE HCL 2 MG CAPSULE PO PRN (12:12)
[2023-04-18] MEDS ORDERED: NALOXONE HCL 0.4 MG/ML VIAL IM PRN (12:12)
[2023-04-18] MEDS ORDERED: NALOXONE HCL (KLOXXADO) 8 MG SPRAY NS PRN (12:12)
[2023-04-18] MEDS ORDERED: guaiFENesin 600 MG TABLET.ER (FP) PO PRN (12:12)
[2023-04-18] MEDS ORDERED: BENZONATATE 200 MG CAPSULE PO PRN (12:12)
[2023-04-18] MEDS ORDERED: ACETAMINOPHEN 325 MG TABLET (FP) PO PRN (12:12)
[2023-04-18] MEDS ORDERED: DICYCLOMINE HCL 10 MG CAPSULE PO PRN (12:12)
[2023-04-18] MEDS: PRENATAL VITAMINS W/ FOLIC ACID TABLET (FP) PO SCH (12:44)
[2023-04-18] MEDS: NICOTINE 14 MG/24 HOURS TOPICAL PATCH TD SCH (12:44)
[2023-04-18] MEDS: chlordiazePOXIDE HCL 25 MG CAPSULE PO SCH ×2 (17:27→22:18)
[2023-04-18] MEDS: MELATONIN 5 MG TABLETS PO SCH (22:18)
[2023-04-18] MEDS: THIAMINE HCL 100 MG TABLET (FP) PO SCH (22:18)
[2023-04-19] MEDS: chlordiazePOXIDE HCL 25 MG CAPSULE PO SCH ×4 (05:24→22:17)
[2023-04-19] MEDS ORDERED: methaDONE HCL 10 MG TABLET PO SCH (06:00)
[2023-04-19] MEDS: PRENATAL VITAMINS W/ FOLIC ACID TABLET (FP) PO SCH (10:50)
[2023-04-19] MEDS: NICOTINE 14 MG/24 HOURS TOPICAL PATCH TD SCH (10:51)
[2023-04-19] MEDS: hydrOXYzine PAMOATE 25 MG CAPSULE (FP) PO PRN (10:52)
[2023-04-19] MEDS: METHOCARBAMOL 500 MG TABLET PO PRN (10:53)
[2023-04-19 12:00] LABS: CALCIUM 8.5 mg/dL (8.5-10.1)
[2023-04-19 12:02] LABS: ALBUMIN 3.1 g/dl (3.4-5.0); BLOOD UREA NITROGEN 14.2 mg/dL (7-18)
[2023-04-19 12:03] LABS: HEMATOCRIT 39.9 % (35.4-49); HEMOGLOBIN 12.9 GM/dL (11.7-16.9); MCH 26.8 pg (25.7-33.7); MCHC 32.2 g/dl (32.0-35.9); MEAN CELL VOLUME 83.2 fl (80-96); MEAN PLT VOLUME 8.9 fl (7.5-11.1); PLATELET COUNT 169 10^3/uL (134-434); RDW 14.2 % (11.9-15.9)
[2023-04-19 12:06] LABS: BILIRUBIN,TOTAL 0.2 mg/dL (0.2-1); TOT PROT 6.8 g/dl (6.4-8.2)
[2023-04-19] MEDS: MELATONIN 5 MG TABLETS PO SCH (22:17)
[2023-04-19] MEDS: THIAMINE HCL 100 MG TABLET (FP) PO SCH (22:17)
[2023-04-20] MEDS: chlordiazePOXIDE HCL 25 MG CAPSULE PO SCH ×4 (05:09→22:32)
[2023-04-20] MEDS: hydrOXYzine PAMOATE 25 MG CAPSULE (FP) PO PRN (10:40)
[2023-04-20] MEDS: PRENATAL VITAMINS W/ FOLIC ACID TABLET (FP) PO SCH (10:40)
[2023-04-20] MEDS: METHOCARBAMOL 500 MG TABLET PO PRN (10:40)
[2023-04-20] MEDS: NICOTINE 14 MG/24 HOURS TOPICAL PATCH TD SCH (10:41)
[2023-04-20] MEDS: THIAMINE HCL 100 MG TABLET (FP) PO SCH (22:32)
[2023-04-20] MEDS: MELATONIN 5 MG TABLETS PO SCH (22:32)
[2023-04-21] MEDS ORDERED: chlordiazePOXIDE HCL 10 MG CAPSULE PO PRN
[2023-04-21] MEDS: chlordiazePOXIDE HCL 10 MG CAPSULE PO SCH ×4 (05:11→22:13)
[2023-04-21] MEDS: PRENATAL VITAMINS W/ FOLIC ACID TABLET (FP) PO SCH (10:22)
[2023-04-21] MEDS: NICOTINE 14 MG/24 HOURS TOPICAL PATCH TD SCH (10:23)
[2023-04-21] MEDS: THIAMINE HCL 100 MG TABLET (FP) PO SCH (22:12)
[2023-04-21] MEDS: MELATONIN 5 MG TABLETS PO SCH (22:12)
[2023-04-22] MEDS ORDERED: chlordiazePOXIDE HCL 10 MG CAPSULE PO SCH (05:00)
[2023-04-22 07:12] VITALS: RESP 18
[2023-04-22 09:14] VITALS: BP 141/85; PULSE 68; TEMP 98.7
[2023-04-22] MEDS: NICOTINE 14 MG/24 HOURS TOPICAL PATCH TD SCH (10:12)
[2023-04-22] MEDS: PRENATAL VITAMINS W/ FOLIC ACID TABLET (FP) PO SCH (10:12)
[2023-04-23] MEDS ORDERED: chlordiazePOXIDE HCL 10 MG CAPSULE PO ONE (05:00)
== END 2023-04-22 10:58 | disposition home or self-care (01) | DRG 773 ==
LOC: YASAS 10:42 → Y6N 13:17
PROVIDERS: ADMIT Allergy & Immunology; ATTEND Surgery
PROC: HZ2ZZZZ Detoxification Services for Substance Abuse Treatment (ICD-10-PCS; principal; 2023-04-18)
DX: F10.230 Alcohol dependence with withdrawal, uncomplicated (principal); F11.20 Opioid dependence, uncomplicated; F14.10 Cocaine abuse, uncomplicated; F12.10 Cannabis abuse, uncomplicated; F17.210 Nicotine dependence, cigarettes, uncomplicated; F25.9 Schizoaffective disorder, unspecified; F31.9 Bipolar disorder, unspecified; I10 Essential (primary) hypertension; M54.50 Low back pain, unspecified; Z86.73 Personal history of transient ischemic attack (TIA), and cerebral infarction without residual deficits; Z86.19 Personal history of other infectious and parasitic diseases
CPT/HCPCS: 36415; 80053; 85027; 86780; 87635; 87811

== ENCOUNTER 2023-10-18 11:30 | Inpatient (IN) | payer OTHER ==
[2023-10-18 11:56] VITALS: BMI 23.3
[2023-10-18] MEDS ORDERED: BENZONATATE 200 MG CAPSULE PO PRN (12:36)
[2023-10-18] MEDS ORDERED: IBUPROFEN 600 MG TABLET (FP) PO PRN (12:36)
[2023-10-18] MEDS ORDERED: BISMUTH SUBSALICYLATE 262 MG/15 ML BTL PO PRN (12:36)
[2023-10-18] MEDS ORDERED: ACETAMINOPHEN 325 MG TABLET (FP) PO PRN (12:36)
[2023-10-18] MEDS ORDERED: IBUPROFEN 400 MG TABLET (FP) PO PRN (12:36)
[2023-10-18] MEDS ORDERED: LOPERAMIDE HCL 2 MG CAPSULE PO PRN (12:36)
[2023-10-18] MEDS ORDERED: guaiFENesin 600 MG TABLET.ER (FP) PO PRN (12:36)
[2023-10-18] MEDS ORDERED: DICYCLOMINE HCL 10 MG CAPSULE PO PRN (12:36)
[2023-10-18] MEDS ORDERED: MAG HYDROX/AL HYDROX/SIMETH 30 ML UNIT-DOSE CUP PO PRN (12:36)
[2023-10-18] MEDS ORDERED: POLYETHYLENE GLYCOL (HEALTHYLAX) 3350 17 GM PACKET PO PRN (12:36)
[2023-10-18] MEDS ORDERED: MAGNESIUM HYDROX 2400MG/30ML ORAL SUSPENSION 30 ML CUP PO PRN (12:36)
[2023-10-18] MEDS ORDERED: METHOCARBAMOL 500 MG TABLET PO PRN (12:36)
[2023-10-18] MEDS ORDERED: diazePAM 5 MG TABLET PO PRN (12:36)
[2023-10-18] MEDS ORDERED: NICOTINE POLACRILEX 2 MG GUM BUC PRN (12:36)
[2023-10-18] MEDS ORDERED: NALOXONE HCL 0.4 MG/ML VIAL IM PRN (12:36)
[2023-10-18] MEDS ORDERED: BENZOCAINE/MENTHOL (CHLORASEPTIC ) LOZENGE MM PRN (12:36)
[2023-10-18] MEDS ORDERED: hydrOXYzine PAMOATE 25 MG CAPSULE (FP) PO PRN (12:36)
[2023-10-18] MEDS ORDERED: NALOXONE HCL (KLOXXADO) 8 MG SPRAY NS PRN (12:36)
[2023-10-18] MEDS ORDERED: P-EPHED 60MG/TRIPROLIDI 2.5MG TABLET PO PRN (13:16)
[2023-10-18] MEDS: diazePAM 5 MG TABLET PO SCH (17:58)
[2023-10-18] MEDS: MELATONIN 5 MG TABLETS PO SCH (22:34)
[2023-10-18] MEDS: THIAMINE HCL 100 MG TABLET (FP) PO SCH (22:34)
[2023-10-19] MEDS ORDERED: methaDONE HCL 10 MG TABLET PO SCH (06:00)
[2023-10-19] MEDS ORDERED: LORazepam 1 MG TABLET PO PRN (09:31)
[2023-10-19] MEDS: PRENATAL VITAMINS W/ FOLIC ACID TABLET (FP) PO SCH (10:11)
[2023-10-19] MEDS: LORazepam 2 MG TABLET PO SCH (10:12)
[2023-10-19] MEDS: ONDANSETRON *ODT* 4 MG TABLET SL PRN (10:13)
[2023-10-19 10:47] LABS: HEMATOCRIT 40.2 % (35.4-49); HEMOGLOBIN 13.1 GM/dL (11.7-16.9); MCH 26.6 pg (25.7-33.7); MCHC 32.6 g/dl (32.0-35.9); MEAN CELL VOLUME 81.6 fl (80-96); MEAN PLT VOLUME 8.3 fl (7.5-11.1); PLATELET COUNT 197 10^3/uL (134-434); RBC 4.93 M/mm3 (4.00-5.60); RDW 14.7 % (11.9-15.9)
[2023-10-19 11:43] LABS: CHLORIDE 107 mmol/L (98-107); POTASSIUM 3.9 mmol/L (3.5-5.1); SODIUM 142 mmol/L (136-145)
[2023-10-19 11:46] LABS: CALCIUM 9.1 mg/dL (8.5-10.1)
[2023-10-19 11:48] LABS: ALBUMIN 3.4 g/dl (3.4-5.0); ANION GAP 9 mmol/L (4-13); BLOOD UREA NITROGEN 10.8 mg/dL (7-18); CO2 26 mmol/L (21-32); GLUCOSE,RANDOM 102 mg/dL (74-106)
[2023-10-19 11:50] LABS: SGOT/AST 12 U/L (15-37); SGPT/ALT 20 U/L (13-61)
[2023-10-19 11:52] LABS: BILIRUBIN,TOTAL 0.3 mg/dL (0.2-1); TOT PROT 7.7 g/dl (6.4-8.2)
[2023-10-19 11:53] LABS: ALK PHOS 122 U/L (45-117)
[2023-10-19] MEDS: AMITRIPTYLINE HCL 25 MG TABLET PO SCH (22:30)
[2023-10-20] MEDS ORDERED: diazePAM 5 MG TABLET PO SCH (06:00)
[2023-10-21] MEDS: LORazepam 1 MG TABLET PO SCH (05:42)
[2023-10-21] MEDS ORDERED: diazePAM 5 MG TABLET PO SCH (06:00)
[2023-10-21 09:06] VITALS: TEMP 97.7
[2023-10-21 13:05] VITALS: BP 114/62; PULSE 66; RESP 18
[2023-10-22] MEDS ORDERED: LORazepam 0.5 MG TABLET PO PRN
[2023-10-22] MEDS ORDERED: LORazepam 0.5 MG TABLET PO SCH (05:00)
[2023-10-22] MEDS ORDERED: diazePAM 5 MG TABLET PO ONE (06:00)
[2023-10-23] MEDS ORDERED: LORazepam 0.5 MG TABLET PO ONE (05:00)
== END 2023-10-21 14:47 | disposition home or self-care (01) | DRG 773 ==
LOC: YASAS 11:30 → Y6N 13:06
PROVIDERS: ADMIT Allergy & Immunology; ATTEND Surgery
PROC: HZ2ZZZZ Detoxification Services for Substance Abuse Treatment (ICD-10-PCS; principal; 2023-10-18)
DX: F10.230 Alcohol dependence with withdrawal, uncomplicated (principal); F13.230 Sedative, hypnotic or anxiolytic dependence with withdrawal, uncomplicated; F11.20 Opioid dependence, uncomplicated; F17.210 Nicotine dependence, cigarettes, uncomplicated; F19.282 Other psychoactive substance dependence with psychoactive substance-induced sleep disorder; F19.280 Other psychoactive substance dependence with psychoactive substance-induced anxiety disorder; F25.9 Schizoaffective disorder, unspecified; F43.10 Post-traumatic stress disorder, unspecified; E78.5 Hyperlipidemia, unspecified; I10 Essential (primary) hypertension; J45.909 Unspecified asthma, uncomplicated; K21.9 Gastro-esophageal reflux disease without esophagitis; M54.50 Low back pain, unspecified; G89.29 Other chronic pain; Z86.19 Personal history of other infectious and parasitic diseases
CPT/HCPCS: 36415; 80053; 80307; 85027; 86780; 87635; 93005; 93010; Q0162